=== PATIENT | male | born 1970 | race Caucasian/White ===

== ENCOUNTER → 2018-05-29 | Outpatient (CLI) | payer OTHER | END | disposition home or self-care (01) | LOC: C.LAB 07:20 | PROVIDERS: ATTEND Family Medicine | DX: Z00.00 Encounter for general adult medical examination without abnormal findings (principal) ==

== ENCOUNTER 2020-07-19 14:06 | Inpatient (IN) ==
[2020-07-19] MEDS ORDERED: MoRPHine SULFATE 10 MG/ML CARP/VIAL IV PRN (14:23)
[2020-07-19] MEDS ORDERED: ONDANSETRON INJ 2 MG/ML 2 ML VIAL IV STA (14:23)
[2020-07-19] MEDS ORDERED: PANTOprazole 40 MG in SYRINGE 0 ML IV ONE (14:23)
[2020-07-19] MEDS ORDERED: SODIUM CHLORIDE 0.9% 1000ML 1,000 ML IV SCH (14:30)
--- NOTE | 2020-07-19 14:33 | Emergency Department Note ---
History of Present Illness General Chief complaint: Abdominal Pain Stated complaint: ABDOMINAL PAIN Time Seen by Provider: 07/19/20 14:10 History of Present Illness Maximum Pain Intensity: 6 This is a 50-year-old male presenting to the emergency department for evaluation of epigastric abdominal pain for the past 3 hours. The patient states that he ate lunch around 11 AM, and shortly after began having a very tight bandlike pain across his upper abdomen. The pain is constant and nonradiating. It is rated a 6/10. He does have a history of esophageal reflux, and did take an acid reflux medicine and 2 Tums without any improvement of symptoms. He is without nausea or vomiting. He does not have any chest pain, chest tightness, shortness of breath, or lower abdominal pain. No history of abdominal surgery. There is a strong family history of esophageal cancer in members of family who have smoked. The patient is not a smoker. He has had EGD in the past several years ago, which was reportedly normal. The patient has not had fevers or chills. No known sick contacts. He is on Lipitor but no other medications or blood thinners. Home Medications Home Medications Medication Instructions Recorded Confirmed Type atorvastatin 10 mg PO QPM 07/19/20 07/19/20 History Allergies Allergy/AdvReac Type Severity Reaction Status Date / Time No Known Allergies Allergy Verified 07/19/20 17:26 Past Med/Surg History Medical History (Updated 07/20/20 @ 14:20 by Pj Gramajo PA-C) Esophageal reflux Hyperlipidemia Surgical History (Updated 07/20/20 @ 00:54 by Beto Gamboa) H/O wisdom tooth extraction History of ankle surgery left Family History Grandmother Diabetes Grandfather Myocardial infarction Grandfather Esophageal cancer Uncle Prostate cancer Mother Hypertension Father Hypertension Brother Crohn's disease Sister Stroke, Onset Age: 50 TIA Sister No problems noted. Son No problems noted. Daughter No problems noted. Daughter No problems noted. Denies family history of Ovarian cancer Breast cancer Colorectal cancer Social History (Updated 07/20/20 @ 00:55 by Beto Gamboa) Smoking Status: Former smoker Age Started Using Tobacco: 17; Age Quit Using Tobacco: 27; packs per day: 1; Second Hand Exposure: No; Do You Dip or Chew Tobacco: Yes (half a can a day); Tobacco Cessation Education Requested by Patient: No Hx Alcohol Use: No Hx Substance Use: No Preferred Language: Chadian Communication Ability: Effective Visual Impairment: No Limitations Hearing Ability: Normal Beliefs That Will Affect Care: None marital status: Current Living Situation: Family Current Living Situation Comment: [facility] current occupational status: employed current occupation: self employed -- construction (residential) How many Children do You have: 3 Other Information That Helps Us Care for You: No Feels Safe at Home: Yes Safety Concerns: Feels Safe At This Time Childhood Exposure to Second-Hand Smoke: No Dental Care, Regularly: Yes Physical Activity Frequency: 1-2 Times per Week Seatbelt Use: always Assistive Devices: None Review of Systems A total of 10 systems reviewed and were otherwise negative Physical Exam Vital Signs Vital Signs - 24 hr 07/19/20 14:41 07/19/20 14:59 07/19/20 15:00 Pulse Rate 84 90 Pulse Rate from SpO2 Sensor 88 Respiratory Rate 18 17 Blood Pressure 139/85 Blood Pressure Mean 93 Pulse Oximetry 95 95 Oxygen Delivery Method Room Air 07/19/20 15:01 07/19/20 15:39 07/19/20 16:00 Pulse Rate 84 74 74 Pulse Rate from SpO2 Sensor Respiratory Rate 17 18 17 Blood Pressure 138/91 Blood Pressure Mean 102 Pulse Oximetry Oxygen Delivery Method VITALS: Vitals are noted on the nurse's note and reviewed by myself. Vital signs stable. GENERAL: Well-developed, well-nourished, white male, who is in no acute distress and resting comfortably. Patient is cooperative with the examination. HEAD: Normocephalic atraumatic. NECK: Supple without nuchal rigidity. No lymphadenopathy. No thyromegaly. Cervical spine is nontender. HEART: Regular rate and rhythm without murmurs gallops or rubs. LUNGS: Clear to auscultation bilaterally without wheezes, rales or rhonchi. No retractions or accessory muscle use. ABDOMEN: Positive normal bowel sounds x 4. Soft with epigastric tenderness on palpation. There is both right upper and left upper quadrant tenderness. No lower abdominal tenderness. No CVA tenderness. MUSCULOSKELETAL: No muscle atrophy, erythema, or edema noted. Full range of motion in all extremities. No tenderness to palpation. NEURO: Patient was alert and oriented to person place and time. CN II through XII grossly intact. Course Administered Medications Atorvastatin Calcium (Atorvastatin 10 Mg Tab) 10 mg PO DAILY SADIE Stop: 08/19/20 08:59 Last Admin: 07/20/20 08:57 Dose: 10 mg Documented by: [id number] Chlorpromazine HCl (Chlorpromazine Hcl Inj 25 Mg/Ml 2 Ml Amp) 25 mg IM Q8H PRN PRN Reason: hiccups Stop: 08/19/20 10:29 Last Admin: 07/20/20 13:03 Dose: 25 mg Documented by: [id number] Diclofenac Sodium (Diclofenac Sod 1% Gel 100 Gm Tube) 2 gm EXT QID SADIE Stop: 08/18/20 20:59 Last Admin: 07/20/20 11:49 Dose: Not Given Documented by: [id number] Admin: 07/20/20 08:52 Dose: Not Given Documented by: [id number] Admin: 07/19/20 19:51 Dose: Not Given Documented by: [id number] Hydromorphone HCl (Hydromorphone Inj 0.5 Mg/0.5 Ml Syr) 0.5 mg IV Q4H PRN PRN Reason: Pain Stop: 08/02/20 18:40 Last Admin: 07/20/20 07:30 Dose: 0.5 mg Documented by: [id number] Admin: 07/20/20 00:51 Dose: 0.5 mg Documented by: [id number] Admin: 07/19/20 19:08 Dose: 0.5 mg Documented by: [id number] Potassium Chloride/Dextrose/Sod Cl (D5w And 1/2nss + 20meq Kcl) 20 meq in 1,000 mls @ 125 mls/hr IV .Q8H SADIE Stop: 08/18/20 18:59 Last Admin: 07/20/20 10:41 Dose: 125 mls/hr Documented by: [id number] Infusion: 07/20/20 10:29 Dose: 125 mls/hr Documented by: [id number] Admin: 07/20/20 02:29 Dose: 125 mls/hr Documented by: [id number] Infusion: 07/20/20 02:29 Dose: 125 mls/hr Documented by: [id number] Admin: 07/19/20 19:06 Dose: 125 mls/hr Documented by: [id number] Famotidine 20 mg/ Syringe 5 mls @ 2.5 mls/min IV BID SADIE Stop: 08/18/20 20:59 Last Admin: 07/20/20 08:57 Dose: 2.5 mls/min Documented by: [id number] Admin: 07/19/20 21:02 Dose: 2.5 mls/min Documented by: [id number] Ondansetron HCl (Ondansetron Inj 2 Mg/Ml 2 Ml Vial) 4 mg IV Q6H PRN PRN Reason: Nausea Stop: 08/18/20 18:40 Last Admin: 07/20/20 07:29 Dose: 4 mg Documented by: [id number] Admin: 07/19/20 23:52 Dose: 4 mg Documented by: [id number] Discontinued Medications Hydromorphone HCl (Hydromorphone Inj 0.5 Mg/0.5 Ml Syr) 0.5 mg IV NOW STA Stop: 07/19/20 21:42 Last Admin: 07/19/20 21:54 Dose: 0.5 mg Documented by: [id number] Hydromorphone HCl (Hydromorphone Inj 0.5 Mg/0.5 Ml Syr) 0.5 mg IV NOW STA Stop: 07/20/20 03:28 Last Admin: 07/20/20 03:47 Dose: 0.5 mg Documented by: [id number] Sodium Chloride (Nss 1000ml) 1,000 mls @ 999 mls/hr IV .Q1H1M SADIE Stop: 07/19/20 15:30 Last Infusion: 07/19/20 18:01 Dose: 0 mls/hr Documented by: [id number] Admin: 07/19/20 14:57 Dose: 999 mls/hr Documented by: [id number] Pantoprazole Sodium 40 mg/ (Syringe) 10 mls @ 5 mls/min IV NOW ONE Stop: 07/19/20 14:24 Last Admin: 07/19/20 16:22 Dose: Not Given Documented by: [id number] Ioversol (Ioversol 100ml) 94 ml IV ONCE ONE Stop: 07/20/20 13:26 Last Admin: 07/20/20 13:25 Dose: 94 ml Documented by: [id number] Morphine Sulfate (Morphine Sulfate 10 Mg/Ml Carp/Vial) 6 mg IV Q1H PRN PRN Reason: Pain Stop: 08/02/20 14:22 Last Admin: 07/19/20 14:57 Dose: 6 mg Documented by: [id number] Morphine Sulfate (Morphine Sulfate 2 Mg/Ml Carp) Confirm Administered Dose 2 mg .ROUTE .STK-MED ONE Stop: 07/19/20 16:24 Last Admin: 07/19/20 16:43 Dose: 2 mg Documented by: [id number] Morphine Sulfate (Morphine Sulfate 4 Mg/Ml 1 Ml Carp\Vial) Confirm Administered Dose 4 mg .ROUTE .STK-MED ONE Stop: 07/19/20 16:24 Last Admin: 07/19/20 16:43 Dose: 4 mg Documented by: [id number] Ondansetron HCl (Ondansetron Inj 2 Mg/Ml 2 Ml Vial) 4 mg IV NOW STA Stop: 07/19/20 14:24 Last Admin: 07/19/20 14:57 Dose: 4 mg Documented by: [id number] Medical Decision Making Differential Diagnosis Differential diagnosis: Etiologies such as biliary colic, cholecystitis, hepatitis, pancreatitis, cardiac disease, pancreatitis, gastritis, peptic ulcer disease, appendicitis, cystitis, diverticulitis, mesenteric ischemia, inflammatory bowel disease, ileus, bowel obstruction, testicular/adnexal torsion, aortic pathology, shingles, as well as others were considered Laboratory Data Result diagrams: 07/19/20 14:42 07/20/20 05:49 Lab Results 07/19/20 07/19/20 07/19/20 Range/Units 14:42 14:42 14:44 WBC 8.71 (4.8-10.8) K/uL RBC 4.63 L (4.7-6.1) M/uL Hgb 15.9 (14.0-18.0) g/dL Hct 44.7 (42-52) % MCV 96.5 (80-100) fL MCH 34.3 H (25-34) pg MCHC 35.6 (32-36) g/dL RDW Std Deviation 44.6 (36.4-46.3) fL RDW Coeff of Devin 12.7 (11.5-14.5) % Plt Count 243 (130-400) K/uL MPV 10.6 H (7.4-10.4) fL Immature Gran % (Auto) 0.1 % Neut % (Auto) 82.3 % Lymph % (Auto) 10.1 % Twiggs % (Auto) 7.2 % Eos % (Auto) 0.2 % Baso % (Auto) 0.1 % Neut # (Auto) 7.16 H (1.4-6.5) K/uL Lymph # (Auto) 0.88 L (1.2-3.4) K/uL Twiggs # (Auto) 0.63 H (0.11-0.59) K/uL Eos # (Auto) 0.02 (0-0.5) K/uL Baso # (Auto) 0.01 (0-0.2) K/uL Immature Gran # (Auto) 0.01 (0.00-0.02) K/uL PT 11.0 (9.0-12.0) Seconds INR 1.0 (0.9-1.1) APTT 27.2 (21.0-31.0) Seconds PTT Ratio 1.0 Sodium 139 (136-145) mmol/L Potassium 3.9 (3.5-5.1) mmol/L Chloride 107 (98-107) mmol/L Carbon Dioxide 27 (21-32) mmol/L Anion Gap 5.0 (3-11) BUN 13 (7-18) mg/dl Creatinine 1.14 (0.6-1.4) mg/dl Est Cr Clr Drug Dosing 87.4 ml/min Est GFR ( Amer) 87.7 Est GFR (Non-Af Amer) 75.6 BUN/Creatinine Ratio 11.7 (10-20) Glucose 111 H (70-99) mg/dl Calcium 9.1 (8.5-10.1) mg/dl Magnesium 2.2 (1.8-2.4) mg/dl Total Bilirubin 0.4 (0.2-1) mg/dl AST 28 (15-37) U/L ALT 43 (12-78) U/L Alkaline Phosphatase 48 (45-117) U/L Troponin I < 0.015 (0-0.045) ng/ml Total Protein 7.9 (6.4-8.2) gm/dl Albumin 3.9 (3.4-5.0) gm/dl Globulin 4.0 (2.5-4.0) gm/dl Albumin/Globulin Ratio 1.0 (0.9-2) Amylase 97 (25-115) U/L Lipase 158 (73-393) U/L TSH 1.330 (0.300-4.500) uIu/ml Urine Color Urine Appearance (Clear) Urine pH (4.5-7.5) Ur Specific [place] (1.000-1.030) Urine Protein (Negative) Urine Glucose (UA) (Negative) Urine Ketones (Negative) Urine Blood (Negative) Urine Nitrite (Negative) Urine Bilirubin (Negative) Urine Urobilinogen (Negative) Ur Leukocyte Esterase (Negative) 07/19/20 Range/Units 15:13 WBC (4.8-10.8) K/uL RBC (4.7-6.1) M/uL Hgb (14.0-18.0) g/dL Hct (42-52) % MCV (80-100) fL MCH (25-34) pg MCHC (32-36) g/dL RDW Std Deviation (36.4-46.3) fL RDW Coeff of Devin (11.5-14.5) % Plt Count (130-400) K/uL MPV (7.4-10.4) fL Immature Gran % (Auto) % Neut % (Auto) % Lymph % (Auto) % Twiggs % (Auto) % Eos % (Auto) % Baso % (Auto) % Neut # (Auto) (1.4-6.5) K/uL Lymph # (Auto) (1.2-3.4) K/uL Tw[place]gs # (Auto) (0.11-0.59) K/uL Eos # (Auto) (0-0.5) K/uL Baso # (Auto) (0-0.2) K/uL Immature Gran # (Auto) (0.00-0.02) K/uL PT (9.0-12.0) Seconds INR (0.9-1.1) APTT (21.0-31.0) Seconds PTT Ratio Sodium (136-145) mmol/L Potassium (3.5-5.1) mmol/L Chloride (98-107) mmol/L Carbon Dioxide (21-32) mmol/L Anion Gap (3-11) BUN (7-18) mg/dl Creatinine (0.6-1.4) mg/dl Est Cr Clr Drug Dosing ml/min Est GFR ( Amer) Est GFR (Non-Af Amer) BUN/Creatinine Ratio (10-20) Glucose (70-99) mg/dl Calcium (8.5-10.1) mg/dl Magnesium (1.8-2.4) mg/dl Total Bilirubin (0.2-1) mg/dl AST (15-37) U/L ALT (12-78) U/L Alkaline Phosphatase (45-117) U/L Troponin I (0-0.045) ng/ml Total Protein (6.4-8.2) gm/dl Albumin (3.4-5.0) gm/dl Globulin (2.5-4.0) gm/dl Albumin/Globulin Ratio (0.9-2) Amylase (25-115) U/L Lipase (73-393) U/L TSH (0.300-4.500) uIu/ml Urine Color Yellow Urine Appearance Clear (Clear) Urine pH 7.0 (4.5-7.5) Ur Specific [place] 1.022 (1.000-1.030) Urine Protein Negative (Negative) Urine Glucose (UA) Negative (Negative) Urine Ketones Negative (Negative) Urine Blood Negative (Negative) Urine Nitrite Negative (Negative) Urine Bilirubin Negative (Negative) Urine Urobilinogen Negative (Negative) Ur Leukocyte Esterase Negative (Negative) Imaging Data Radiologist's Impression: CT OF THE ABDOMEN AND PELVIS WITHOUT CONTRAST CLINICAL HISTORY: Epigastric abd pain. COMPARISON STUDY: No previous studies for comparison. TECHNIQUE: Axial images of the abdomen and pelvis were obtained without IV contrast. Images were reviewed in the axial, sagittal, and coronal planes. Automated exposure control was utilized for the study. A dose lowering technique was utilized adhering to the principles of ALARA. FINDINGS: Lung bases are unremarkable. No pneumatosis, free air or portal venous gas is present. Unenhanced images of the liver, spleen, adrenal glands and pancreas are unremarkable. There are bilateral parapelvic cysts. There is no hydronephrosis. There are no urinary calculi. Colonic diverticulosis is noted without evidence for acute diverticulitis. There are multiple mildly dilated fluid-filled small bowel loops within the lower abdomen. Discrete transition points are noted for several bowel loops within the right lower quadrant shown on axial image 300 of 491. No bowel wall thickening is noted however there is a small amount of associated ascites as well as mesenteric infiltration. No suspicious osseous lesions are noted. There is no lymphadenopathy. IMPRESSION: Findings consistent with a small bowel obstruction. Transition points in close proximity to one another for several small bowel loops within the right lower quadrant. Associated small amount of ascites and mesenteric infiltration. A developing closed loop obstruction cannot be excluded. Surgical consultation is recommended. Findings discussed with Pj Gramajo at time of dictation. ACT 112: Negative or not required by law. ECG Data Attestation: I personally reviewed and interpreted this ECG as follows: Indication: abdominal pain Additional Comments: Normal sinus rhythm @[address] elevation Possible old Septal infarct When compared with ECG of 28-SEP-2018 12:01, Possible old Septal infarct is now Present MDM Narrative Physical exam and history were performed. Nursing notes, EMR, and Medication List were personally reviewed. Patient appears to have epigastric abdominal pain after eating lunch today. He does have some reproducible tenderness in the epigastrium. Symptoms do not appear to be in the lower belly or chest. IV access was established and labs were obtained. Patient was hydrated with normal saline and given IV morphine and IV Zofran for comfort. He was sent to CT scan. Ultrasound was ordered. An order was placed for continuous cardiac monitoring. The monitor shows a rate of 84 with normal sinus rhythm. The patient's blood work is as above and was reviewed. He does not have a significantly elevated white blood cell count, gross anemia, bandemia, or significant electrolyte imbalance. Amylase, lipase, and transaminases are not diagnostic. Urine is without evidence of infection or blood. I did receive a phone call from radiology immediately after the patient completed his CT scan. The patient CT scan appears to show a minimum of a small bowel obstruction, however there is concern for possible closed-loop bowel o bstruction. This would correlate with his symptoms, although the patient has not had a history of abdominal surgery in the past. Ultrasound was canceled because of this finding as it does seem to explain his symptoms. The case was discussed with the on-call surgical PA, who did evaluate the patie nt here in the ER. Recommendation was for hospital admission through the hospitalist team, and I did speak with the hospitalist regarding the patient. NG tube was ordered, and the patient was placed n.p.o. Please see the hospitalist dictation for further patient course, plan, and disposition. The chart was completed utilizing [employer] Voice Recognition Software. Grammatical errors, random word insertions, pronoun errors, and incomplete sentences are an occasional consequence of this system due to software limitations, ambient noise, and hardware issues. Any formal questions or lynn rns about the content, text, or information contained within the body of this dictation should be directly addressed to the provider for clarification. . Impression & Plan SBO (small bowel obstruction), Abdominal pain Discharge Plan Visit Data Chief Complaint: Abdominal Pain Stated Complaint: ABDOMINAL PAIN ED Provider: Jerry Reed ED Midlevel Provider: Pj Gramajo Discharge Problem: SBO (small bowel obstruction), Abdominal pain Patient Disposition: Admitted As Inpatient Discharge Instructions Interventions: ED Discharge Assessment Last Done: 07/19/20 18:27 Discharge Problem: Abdominal pain Qualifiers: Abdominal location: epigastric Qualified Code(s): R10.13 - Epigastric pain
[2020-07-19 15:20] LABS: Basophils # (auto) 0.01 K/uL (0-0.2); Basophils % (auto) 0.1 %; Eosinophils # (auto) 0.02 K/uL (0-0.5); Eosinophils % (auto) 0.2 %; Hematocrit (blood only) 44.7 % (42-52); Hemoglobin 15.9 g/dL (14.0-18.0); Immature Granulocytes # (auto) 0.01 K/uL (0.00-0.02); Immature Granulocytes % (auto) 0.1 %; Lymphocytes # (auto) 0.88 K/uL (1.2-3.4); Lymphocytes % (auto) 10.1 %; Mean Corpuscular Hemoglobin 34.3 pg (25-34); Mean Corpuscular Hgb Conc 35.6 g/dL (32-36); Mean Corpuscular Volume 96.5 fL (80-100); Mean Platelet Volume 10.6 fL (7.4-10.4); Monocytes # (auto) 0.63 K/uL (0.11-0.59); Monocytes % (auto) 7.2 %; Neutrophils # (auto) 7.16 K/uL (1.4-6.5); Neutrophils % (auto) 82.3 %; Platelet Count 243 K/uL (130-400); RDW Coefficient of Variation 12.7 % (11.5-14.5); RDW Standard Deviation 44.6 fL (36.4-46.3); Red Blood Count 4.63 M/uL (4.7-6.1); White Blood Count 8.71 K/uL (4.8-10.8)
[2020-07-19 15:25] LABS: Alanine Aminotransferase 43 U/L (12-78); Albumin Level 3.9 gm/dl (3.4-5.0); Amylase 97 U/L (25-115); Aspartate Aminotransferase 28 U/L (15-37); BUN Creatinine Ratio 11.7 (10-20); Blood Urea Nitrogen 13 mg/dl (7-18); Calcium 9.1 mg/dl (8.5-10.1); Carbon Dioxide 27 mmol/L (21-32); Chloride 107 mmol/L (98-107); Creatinine Clr Calc Pharmacy 87.4 ml/min; Est GFR (African American) 87.7; Est GFR (Non-African American) 75.6; Glucose 111 mg/dl (70-99); Lipase 158 U/L (73-393); Magnesium 2.2 mg/dl (1.8-2.4); Potassium 3.9 mmol/L (3.5-5.1); Sodium 139 mmol/L (136-145)
[2020-07-19 15:34] LABS: Partial Thromboplastin Time 27.2 Seconds (21.0-31.0)
[2020-07-19 15:36] LABS: Alkaline Phosphatase 48 U/L (45-117); Bilirubin,Total 0.4 mg/dl (0.2-1); Total Protein 7.9 gm/dl (6.4-8.2); Troponin I < 0.015 ng/ml (0-0.045)
--- NOTE | 2020-07-19 15:54 | CT Scan Report ---
CT OF THE ABDOMEN AND PELVIS WITHOUT CONTRAST CLINICAL HISTORY: Epigastric abd pain. COMPARISON STUDY: No previous studies for comparison. TECHNIQUE: Axial images of the abdomen and pelvis were obtained without IV contrast. Images were revi ewed in the axial, sagittal, and coronal planes. Automated exposure control was utilized for the leoncio dy. A dose lowering technique was utilized adhering to the principles of ALARA. FINDINGS: Lung bases are unremarkable. No pneumatosis, free air or portal venous gas is present. Unen hanced images of the liver, spleen, adrenal glands and pancreas are unremarkable. There are bilateral parapelvic cysts. There is no hydronephrosis. There are no urinary calculi. Colonic diverticulosis i s noted without evidence for acute diverticulitis. There are multiple mildly dilated fluid-filled sma ll bowel loops within the lower abdomen. Discrete transition points are noted for several bowel loops within the right lower quadrant shown on axial image 300 of 491. No bowel wall thickening is noted h owever there is a small amount of associated ascites as well as mesenteric infiltration. No suspiciou s osseous lesions are noted. There is no lymphadenopathy. IMPRESSION: Findings consistent with a small bowel obstruction. Transition points in close proximity to one another for several small bowel loops within the right lower quadrant. Associated small amoun t of ascites and mesenteric infiltration. A developing closed loop obstruction cannot be excluded. Lynch rgical consultation is recommended. Findings discussed with Pj Gramajo at time of dictation. ACT 112: Negative or not required by law. Electronically signed by: Robert Figueredo M.D. 07/19/2020 3:52 PM
[2020-07-19 16:09] LABS: Appearance Urine Clear (Clear); Bilirubin Urine Negative (Negative); Blood Urine Negative (Negative); Color Urine Yellow; Glucose Urine UA Negative (Negative); Ketones Urine Negative (Negative); Leukocyte Esterase Urine Negative (Negative); Nitrite Urine Negative (Negative); Protein Urine Negative (Negative); Specific Gravity Urine 1.022 (1.000-1.030); Urobilinogen Urine Negative (Negative)
[2020-07-19] MEDS ORDERED: MoRPHine SULFATE 4 MG/ML 1 ML CARP\\VIAL ONE (16:23)
[2020-07-19] MEDS ORDERED: MoRPHine SULFATE 2 MG/ML CARP ONE (16:23)
--- NOTE | 2020-07-19 16:38 | History & Physical Report ---
Date of Service July 19, 2020 Assessment & Plan (1) SBO (small bowel obstruction): CT abd/pelvis suggests SBO - potentially even a closed-loop obstruction - but patient has no prior h/o intra-abdominal surgery, trauma, etc. Appreciate gen surg consultation. Deferring on NG tube for now due to lack of nausea/emesis and fairly soft abdominal exam. Plan for this evening - NPO status, IV fluids, IV pain meds, IV nausea meds, and repeat abd x-rays in am. If not an SBO - severe viral gastroenteritis? other? (2) Abdominal pain: As above. LFTs, lipase, and ua all wnl. No symptoms to suggest cardiac cause of abdominal symptoms. Pain meds prn. See "SBO" above. (3) Esophageal reflux: IV pepcid BID. (4) Hyperlipidemia: lipitor daily (5) DVT prophylaxis: low risk ambulate defer on chemical means for now updated at bedside again appreciate gen surg input History of Present Illness Chief Complaint: abdominal pain Primary Care Provider: Megan Cox MD 50yo male with h/o hyperlipidemia presents with acute onset of upper abdominal pain and bloating beginning about 1115 this am after eating at a local deli. Pain started about 5-10 minutes after he finished eating his meal. No nausea or vomiting. Pain radiated to the back. No diarrhea. Has not passed flatus since coming to the ER. No fevers but did have mild chills about 1-2 hours into the pain episode. Pain is described as sharp and continuous. [place] fine this am upon awakening with no recent illnesses. In the ER a CT of the abd/pelvis appeared to show an SBO. General surgery was contacted for consultation and we were consulted for admission. Allergies Allergy/AdvReac Type Severity Reaction Status Date / Time No Known Allergies Allergy Verified 07/19/20 17:26 Home Medications Home Medications Medication Instructions Recorded Confirmed Type atorvastatin 10 mg PO QPM 07/19/20 07/19/20 History Past Med/Surg History Medical History (Updated 07/20/20 @ 00:58 by Beto Gamboa) Esophageal reflux Hyperlipidemia Surgical History (Updated 07/20/20 @ 00:54 by Bteo Gamboa) H/O wisdom tooth extraction History of ankle surgery left Family History Grandmother Diabetes Grandfather Myocardial infarction Grandfather Esophageal cancer Uncle Prostate cancer Mother Hypertension Father Hypertension Brother Crohn's disease Sister Stroke, Onset Age: 50 TIA Sister No problems noted. Son No problems noted. Daughter No problems noted. Daughter No problems noted. Denies family history of Ovarian cancer Breast cancer Colorectal cancer Social History (Updated 07/20/20 @ 00:55 by Beto Gamboa) Smoking Status: Former smoker Age Started Using Tobacco: 17; Age Quit Using Tobacco: 27; packs per day: 1; Second Hand Exposure: No; Do You Dip or Chew Tobacco: Yes (half a can a day); Tobacco Cessation Education Requested by Patient: No Hx Alcohol Use: No Hx Substance Use: No Preferred Language: Ugandan Communication Ability: Effective Visual Impairment: No Limitations Hearing Ability: Normal Beliefs That Will Affect Care: None marital status: Current Living Situation: Family Current Living Situation Comment: [place] current occupational status: employed current occupation: self employed -- construction (residential) How many Children do You have: 3 Other Information That Helps Us Care for You: No Feels Safe at Home: Yes Safety Concerns: Feels Safe At This Time Childhood Exposure to Second-Hand Smoke: No Dental Care, Regularly: Yes Physical Activity Frequency: 1-2 Times per Week Seatbelt Use: always Assistive Devices: None Review of Systems Constitutional: no fever, no chills, no body aches, no fatigue and no weight loss Eyes: no worsening vision Ear, Nose, Mouth, Throat: no nasal congestion and no sore throat no loss of taste or smell Respiratory: no cough and no dyspnea Cardiovascular: no chest pain Gastrointestinal: + abdominal pain; no nausea, no vomiting and no diarrhea/loose stools Genitourinary: no dysuria Musculoskeletal: no myalgia Integumentary: no rash Neurologic: no localized weakness and no loss of sensation Psychiatric: no depression Endocrine: denies diabetes Hematologic / Lymphatic: no easy bleeding and no easy bruising Physical Exam Constitutional: well developed and well nourished; no acute distress and no altered mental status Eyes: PERRL ENMT: external ear and nose normal, oropharynx normal Neck: trachea midline, no thyromegaly Respiratory: normal respiratory effort, lungs clear to auscultation Cardiovascular: RRR, no murmur, no edema Heart Sounds: normal S1 and normal S2 Vessels: posterior tibial pulses present and dorsalis pedis pulses present; no JVD Gastrointestinal (Abdomen): Inspection/Auscultation: normal bowel sounds; abdomen not distended Percussion/Palpation: + abdomen tender (mild - epigastric region ) and abdomen soft; no hepatosplenomegaly Musculoskeletal: no cyanosis or clubbing, extremities motor strength 5/5 Skin: no rashes, warm and dry Neurologic: deep tendon reflexes 2+ bilaterally and moves all extremities Psychiatric: A+Ox3, euthymic affect Lymphatic: no cervical lymphadenopathy Results & Data Results & Data ([facility]) Vital Signs (Past 12 Hours) Vital Signs Temp Pulse Resp BP Pulse Ox 07/19/20 16:00 74 17 138/91 07/19/20 15:39 74 18 07/19/20 15:01 84 17 07/19/20 15:00 95 07/19/20 14:59 90 17 139/85 95 07/19/20 14:41 84 18 07/19/20 14:09 37.5 C 98 H 18 158/91 H 96 Laboratory Results Laboratory Results - last 24 hr 07/19/20 07/19/20 07/19/20 14:42 14:42 14:44 WBC 8.71 RBC 4.63 L Hgb 15.9 Hct 44.7 MCV 96.5 MCH 34.3 H MCHC 35.6 RDW Std Deviation 44.6 RDW Coeff of Devin 12.7 Plt Count 243 MPV 10.6 H Immature Gran % (Auto) 0.1 Neut % (Auto) 82.3 Lymph % (Auto) 10.1 [place] % (Auto) 7.2 Eos % (Auto) 0.2 Baso % (Auto) 0.1 Neut # (Auto) 7.16 H Lymph # (Auto) 0.[address] [place] # (Auto) 0.63 H Eos # (Auto) 0.02 Baso # (Auto) 0.01 Immature Gran # (Auto) 0.01 PT 11.0 INR 1.0 APTT 27.2 PTT Ratio 1.0 Sodium 139 Potassium 3.9 Chloride 107 Carbon Dioxide 27 Anion Gap 5.0 BUN 13 Creatinine 1.14 Est Cr Clr Drug Dosing 87.4 Est GFR ( Amer) 87.7 Est GFR (Non-Af Amer) 75.6 BUN/Creatinine Ratio 11.7 Glucose 111 H Calcium 9.1 Magnesium 2.2 Total Bilirubin 0.4 AST 28 ALT 43 Alkaline Phosphatase 48 Troponin I < 0.015 Total Protein 7.9 Albumin 3.9 Globulin 4.0 Albumin/Globulin Ratio 1.0 Amylase 97 Lipase 158 TSH 1.330 Urine Color Urine Appearance Urine pH Ur Specific [place] Urine Protein Urine Glucose (UA) Urine Ketones Urine Blood Urine Nitrite Urine Bilirubin Urine Urobilinogen Ur Leukocyte Esterase 07/19/20 15:13 WBC RBC Hgb Hct MCV MCH MCHC RDW Std Deviation RDW Coeff of Devin Plt Count MPV Immature Gran % (Auto) Neut % (Auto) Lymph % (Auto) [place] % (Auto) Eos % (Auto) Baso % (Auto) Neut # (Auto) Lymph # (Auto) [place] # (Auto) Eos # (Auto) Baso # (Auto) Immature Gran # (Auto) PT INR APTT PTT Ratio Sodium Potassium Chloride Carbon Dioxide Anion Gap BUN Creatinine Est Cr Clr Drug Dosing Est GFR ( Amer) Est GFR (Non-Af Amer) BUN/Creatinine Ratio Glucose Calcium Magnesium Total Bilirubin AST ALT Alkaline Phosphatase Troponin I Total Protein Albumin Globulin Albumin/Globulin Ratio Amylase Lipase TSH Urine Color Yellow Urine Appearance Clear Urine pH 7.0 Ur Specific [place] 1.022 Urine Protein Negative Urine Glucose (UA) Negative Urine Ketones Negative Urine Blood Negative Urine Nitrite Negative Urine Bilirubin Negative Urine Urobilinogen Negative Ur Leukocyte Esterase Negative Diagnostic Findings CT abd/pelvis: IMPRESSION: Findings consistent with a small bowel obstruction. Transition points in close proximity to one another for several small bowel loops within the right lower quadrant. Associated small amount of ascites and mesenteric infiltration. A developing closed loop obstruction cannot be excluded. Surgical consultation is recommended. EKG - my reading: NSR, no ST changes. Q waves v1/v2. Code Status & VTE Plan Code Status full PG Care Time/CCT Total # of Minutes Spent Total Time Spent with Patient: Total time spent is greater than 50% in coordination of care (as documented) at patient's floor/unit and/or counseling patient: Coding Level of Care Code 68866 Initial Inpt Care Lvl 2 Diagnoses SBO (small bowel obstruction) K56.609 Abdominal pain R10.9 Esophageal reflux K21.9 Hyperlipidemia E78.5 DVT prophylaxis Z29.9
--- NOTE | 2020-07-19 16:53 | Surgery Consultation ---
Date of Consultation July 19, 2020 Assessment & Plan (1) Abdominal pain: No acute abdominal findings. Doubt he has closed loop obstruction. Would keep NPO for tonight, NG if pain or nausea persists or he begins vomiting. KUB in AM, consider additional contrast study depending on repeat eval in the morning. Supervising Physician Co-Signing Physician Notes Patient seen and examined, labs and imaging reviewed, agree with above. 50-year-old male with several hours of abdominal pain after eating lunch presented to the emergency department. He has passed flatus today. No prior abdominal surgeries, infections, or trauma. On exam he is afebrile with stable vitals. Labs are unremarkable. CT without oral or IV contrast reveals some dilated loops of bowel with areas of decompression in the right lower quadrant and some infiltration of the mesentery. Per the radiologist report a closed- loop small bowel obstruction cannot be excluded. At this point this does not appear to be consistent based on history, physical exam, or imaging findings to be consistent with a true closed-loop bowel obstruction. Recommend admission to medicine, n.p.o., IV fluids. No NG tube in this patient begins to vomit. Repeat KUB and labs in the morning. Consider CT with oral and IV contrast if symptoms persist. Surgery will continue to follow. History of Present Illness History of Present Illness 50 y/o male developed epigastric pain a short time after eating a hoagie for lunch. No N/V, felt fine prior to eating. No previous surgery, recent abdominal complaints, injury or trauma. Bowels have been normal, had BM last night. Etoile a little better after medicated with morphine and zofran, but those effects are starting to wear off. Had EGD years ago for reflux symptoms. Allergies Allergy/AdvReac Type Severity Reaction Status Date / Time No Known Drug Allergies Allergy Verified 08/25/19 14:22 Home Medications Home Medications Medication Instructions Recorded Confirmed Type escitalopram oxalate 5 mg tablet 5 mg PO DAILY 05/14/19 08/25/19 History diclofenac sodium 1 % topical gel 2 gm TOP QID #100 gm 08/25/19 08/25/19 Rx atorvastatin 10 mg tablet 10 mg PO DAILY #30 tab 07/06/20 Rx Patient History Medical History Esophageal reflux Hyperlipidemia Surgical History No history of previous surgery Family History Grandmother Diabetes Grandfather Myocardial infarction Grandfather Esophageal cancer Uncle Prostate cancer Mother Hypertension Father Hypertension Brother Crohn's disease Sister Stroke, Onset Age: 50 TIA Sister No problems noted. Son No problems noted. Daughter No problems noted. Daughter No problems noted. Denies family history of Ovarian cancer Breast cancer Colorectal cancer Social History (Updated 08/25/19 @ 14:26 by HOMER Dow) Smoking Status: Former smoker Age Started Using Tobacco: 17; Age Quit Using Tobacco: 27; packs per day: 1; Second Hand Exposure: No; Hx Alcohol Use: Yes Alcohol type: beer Hx Substance Use: No Preferred Language: Mosotho Communication Ability: Effective Visual Impairment: No Limitations Hearing Ability: Normal marital status: Current Living Situation: Family current occupational status: employed current occupation: self emolyed construction Feels Safe at Home: Yes Childhood Exposure to Second-Hand Smoke: No Dental Care, Regularly: Yes Physical Activity Frequency: 1-2 Times per Week Seatbelt Use: always Review of Systems Constitutional: no fever and no chills Gastrointestinal: + abdominal pain and + bloating; no nausea, no vomiting, no excessive flatulence, no change in bowel habits and no constipation Physical Exam Constitutional: WD/WN, vitals as above Respiratory: normal respiratory effort Cardiovascular: Rate/Rhythm: + tachycardic (mild) Gastrointestinal (Abdomen): Inspection/Auscultation: + abdomen distended (minimal) Percussion/Palpation: + abdomen tender (minimal generalized) and abdomen soft; no guarding and abdomen not rigid Results & Data ([facility]) Vital Signs (Past 12 Hours) Vital Signs Temp Pulse Resp BP Pulse Ox 07/19/20 16:00 74 17 138/91 07/19/20 15:39 74 18 07/19/20 15:01 84 17 07/19/20 15:00 95 07/19/20 14:59 90 17 139/85 95 07/19/20 14:41 84 18 07/19/20 14:09 37.5 C 98 H 18 158/91 H 96 PG Care Time/CCT Total # of Minutes Spent Total Time Spent with Patient: Total time spent is greater than 50% in coordination of care (as documented) at patient's floor/unit and/or counseling patient: Coding Level of Care Code 41846 Inpt Consult Level 3 Diagnoses Abdominal pain R10.9
[2020-07-19] MEDS ORDERED: ZOLPIDEM TARTRATE 5 MG TAB PO PRN (18:41)
[2020-07-19] MEDS: D5W AND 1/2NSS + 20MEQ KCL 20 MEQ/1,000 ML BAG IV SCH (19:06)
[2020-07-19] MEDS: HYDROmorphone INJ 0.5 MG/0.5 ML SYR IV PRN (19:08)
[2020-07-19] MEDS: DICLOFENAC SOD 1% GEL 100 GM TUBE EXT SCH (19:51)
[2020-07-19] MEDS: FAMOTIDINE 20 MG in SYRINGE 3 ML IV SCH (21:02)
[2020-07-19] MEDS ORDERED: HYDROmorphone INJ 0.5 MG/0.5 ML SYR IV STA (21:41)
[2020-07-19] MEDS: ONDANSETRON INJ 2 MG/ML 2 ML VIAL IV PRN (23:52)
[2020-07-20] MEDS: HYDROmorphone INJ 0.5 MG/0.5 ML SYR IV PRN ×2 (00:51→07:30)
[2020-07-20] MEDS: D5W AND 1/2NSS + 20MEQ KCL 20 MEQ/1,000 ML BAG IV SCH ×3 (02:29→21:41)
[2020-07-20] MEDS ORDERED: HYDROmorphone INJ 0.5 MG/0.5 ML SYR IV STA (03:27)
[2020-07-20 07:16] LABS: BUN Creatinine Ratio 10.1 (10-20); Calcium 8.4 mg/dl (8.5-10.1); Creatinine Clr Calc Pharmacy 97.4 ml/min; Est GFR (African American) 101.5; Est GFR (Non-African American) 87.5; Magnesium 2.1 mg/dl (1.8-2.4); Potassium 4.3 mmol/L (3.5-5.1)
[2020-07-20] MEDS: ONDANSETRON INJ 2 MG/ML 2 ML VIAL IV PRN (07:29)
--- NOTE | 2020-07-20 07:29 | Hospitalist Progress Note ---
Date of Service July 20, 2020 Assessment & Plan (1) SBO (small bowel obstruction): CT abd/pelvis suggests SBO -patient on previous abdominal surgery or trauma Appreciate gen surg consultation. Ordered CT scan of the abdomen pelvis with intravenous and oral contrast on 07/20/2020 Patient continues deferring on NG tube for now did have an episode of vomitus on 07/20 Keeping his NPO status, IV fluids, IV pain meds, IV nausea meds, (2) Abdominal pain: As above. LFTs, lipase, and ua all wnl. No symptoms to suggest cardiac cause of abdominal symptoms. (3) Esophageal reflux: IV pepcid BID. Patient states many many years ago approximately 20 patient had a similar episode which she had some testing including an EGD and x- rays which was done to be reflux disease and treated with acid suppressing medications with success however was never told about obstruction at that time (4) Hyperlipidemia: lipitor daily (5) DVT prophylaxis: low risk ambulate defer on chemical means for now Patient has hiccups will try Thorazine Admission and Anticipated Discharge Date Admission Date: July 19, 2020 Subjective Patient admitted with abdominal pain nausea and vomiting with concern for bowel obstruction without having previous history of abdominal surgery. Patient is somewhat better this morning but did vomit. Patient is having a contrast CT scan this afternoon is followed by surgical team. Review of Systems Review of Systems: Mild distress and fatigue no headache, blurry or double vision no speech or swallowing issues no chest pain, pressure or palpitations no shortness of breath, cough or wheezes Persistent epigastric upper quadrant abdominal pain nausea with vomiting no bowel movements present no dysuria, hematuria or frequency no focal joint pain or swelling no back pain, CVA tenderness or radicular pain no bruising, bleeding or rashes no focal signs of weakness or numbness or altered sensation no complaints of anxiety or depression. Physical Exam Physical Exam: The patient appeared well nourished and normally developed. Vital signs as documented. Head exam is normocephalic atraumatic no scleral icterus Neck is without JVD, thyromegaly, or carotid bruits. Lungs are clear to auscultation, no focal loss of breath sounds Cardiac exam, Rhythm is regular.. No murmurs, rubs or gallops. Abdominal exam reveals tinkling high-pitched bowel sounds Persistent epigastric upper quadrant abdominal pain no bowel movements present Extremities are nonedematous and both pedal pulses are present Neurologic exam is alert and oriented, no focal loss of strength or sensation Skin is without bruises or rashes Psychologically is without concerns for anxiety or depression. Results & Data Results & Data ([facility]) Vital Signs (Past 12 Hours) Vital Signs Temp Pulse Resp BP Pulse Ox 07/19/20 23:34 98.6 F 61 14 125/73 94 PG Care Time/CCT Total # of Minutes Spent Total Time Spent with Patient: Total time spent is greater than 50% in coordination of care (as documented) at patient's floor/unit and/or counseling patient: Coding Level of Care Code 17129 Subseq Hosp Care Lvl 2 Diagnoses SBO (small bowel obstruction) K56.609 Abdominal pain R10.9 Esophageal reflux K21.9 Hyperlipidemia E78.5 DVT prophylaxis Z29.9
[2020-07-20] MEDS: DICLOFENAC SOD 1% GEL 100 GM TUBE EXT SCH ×4 (08:52→20:58)
[2020-07-20] MEDS: FAMOTIDINE 20 MG in SYRINGE 3 ML IV SCH ×2 (08:57→21:42)
[2020-07-20] MEDS: ATORVASTATIN 10 MG TAB PO SCH (08:57)
--- NOTE | 2020-07-20 08:57 | XRay Report ---
XR abdomen 2V w PA chest HISTORY: 50 years-old Male sbo, interval change follow-up study in a patient with small bowel obstru ction COMPARISON: CT abdomen and pelvis 07/19/2020 TECHNIQUE: PA view of the chest with erect and supine views of the abdomen FINDINGS: Cardiomediastinal and hilar silhouettes are within normal limits. No pneumothorax, pleural effusion, airspace consolidation or overt pulmonary edema. Bones of the chest appear grossly intact. Mildly dilated loops of small bowel in the central abdomen with air-fluid levels measure up to 4.3 cm transversely.. Air is also noted within the large bowel with mild to moderate fecal retention of the hepatic flexure. No pneumatosis or pneumoperitoneum identified. No urolith. IMPRESSION: 1. A few mildly dilated loops of small bowel within the central abdomen with associated air-fluid lev els. Correlating this finding with comparison CT, findings are suspicious for a partial obstruction. Continued follow-up recommended.. 2. No pneumatosis or pneumoperitoneum. ACT 112: Negative or not required by law. The above report was generated using voice recognition software. It may contain grammatical, syntax o r spelling errors. Electronically signed by: Daljit Pineda M.D. 07/20/2020 8:56 AM
--- NOTE | 2020-07-20 09:08 | Surgery Progress Note ---
Date of Service July 20, 2020 Assessment & Plan (1) Abdominal pain: KUB with air fluid levels will check CT with contrast Admission and Anticipated Discharge Date Admission Date: July 19, 2020 Supervising Physician Co-Signing Physician Notes Pnt seen and examined, agree with above. Admitted with possible sbo. Vomited overnight, pain worse. CT with oral and IV contrast shows likely closed loop obstruction tethered in the pelvis. Some ascites. ON exam ttp in LLQ, no guarding. Labs wnl. After discussion patient elects for surgery sbo plan for diagnostic laparoscopy, lysis of adhesions, possible open, possible bowel resection The risks of the procedure were discussed to include but not limited to bleeding, infection, damage to surrounding structures, hernia, abscess, need for future or more extensive surgery, and risks of anesthesia. Subjective a little better but vomited this AM, no flatus or BM Physical Exam Gastrointestinal (Abdomen): Inspection/Auscultation: + abdomen distended (minimal, unchanged) Percussion/Palpation: + abdomen tender (minimal) and abdomen soft Results & Data ([facility]) Vital Signs (Past 12 Hours) Vital Signs Temp Pulse Resp BP Pulse Ox 07/20/20 08:02 36.9 C 62 18 120/70 95 07/19/20 23:34 37.0 C 61 14 125/73 94 PG Care Time/CCT Total # of Minutes Spent Total Time Spent with Patient: Total time spent is greater than 50% in coordination of care (as documented) at patient's floor/unit and/or counseling patient: Coding Level of Care Code 29056 Subseq Hosp Care Lvl 1 Diagnoses Abdominal pain R10.9
[2020-07-20] MEDS ORDERED: chlorproMAZINE HCL 25 MG/ML AMP IM PRN (10:29)
[2020-07-20] MEDS ORDERED: IOVERSOL 100ml IV ONE (13:25)
--- NOTE | 2020-07-20 14:12 | CT Scan Report ---
CT SCAN OF THE ABDOMEN AND PELVIS WITH IV CONTRAST CLINICAL HISTORY: Vomiting. Small bowel obstruction. COMPARISON STUDY: Abdominal CT dated 07/19/2020. TECHNIQUE: Following the IV administration of 94 cc of Optiray 320, CT scan of the abdomen and pelvi s is performed from the lung bases to the proximal femora. Images are reviewed in the axial, sagittal , and coronal planes. IV contrast was administered without complication. Oral contrast was utilized. A dose lowering technique was utilized adhering to the principles of ALARA. CT DOSE: 490.03 mGy.cm FINDINGS: Lung bases: The heart is normal in size and without pericardial effusion. The lung bases are clear no ting bibasilar atelectasis. Liver: The contrast-enhanced liver is normal in size, contour, and attenuation. There is no intrahepa tic biliary ductal dilatation. The hepatic veins and portal veins are patent. Gallbladder: Unremarkable. Spleen: Normal in size and attenuation. Pancreas: Unremarkable. Adrenal glands: Unremarkable. Kidneys: The contrast enhanced kidneys are normal in size and without hydronephrosis. The kidneys enh ance symmetrically. Numerous peripelvic cysts are seen bilaterally. Abdominal vasculature: The abdominal aorta is normal in course and caliber noting mild atheroscleroti c calcification. Bowel: There are distended loops of fluid-filled small bowel in midabdomen. These measure up to 3.2 c m in diameter. There is a complex transition point in the central pelvis well several loops of small bowel appear to be tethered image #313. The appearance is consistent with a small bowel obstruction. Enteric contrast does not reach these loops. The distal small bowel and colon are decompressed. No fo ashly thick walled bowel loops are identified. There is no pneumatosis intestinalis or portal venous gas. Interloop fluid is new from yesterday. There is mild colonic diverticulosis without CT evidence of acute diverticulitis. The appendix is well-visualized and normal. Peritoneum: A small volume of abdominal ascites is new from previous. No intraperitoneal free air is seen. Lymphadenopathy: None. Pelvic viscera: The bladder, prostate, and seminal vesicles are normal as imaged. Skeletal structures: No lytic or blastic lesions are seen. There are bilateral pars defects at L5. IMPRESSION: 1. Findings remain consistent with a high-grade small bowel obstruction. 2. There is a complex transition point in the central pelvis where several bowel loops appear to be t ethered. Findings are highly concerning for a closed loop type obstruction. Surgical consultation is advised. 3. There is increasing interloop fluid. A small volume of abdominopelvic ascites is new from yesterda y. 4. No intraperitoneal free air is identified. There is no pneumatosis intestinalis, portal venous gas , or focally thick walled bowel loops. 5. Additional findings as above. ACT 112: Negative or not required by law. Electronically signed by: Jay Bain M.D. 07/20/2020 2:10 PM
[2020-07-20] MEDS ORDERED: LIDOCAINE HCL 2% 2 ML VIAL/AMP(20MG/ML) INFIL ONE (15:17)
[2020-07-20] MEDS ORDERED: PROPOFOL IV EMULSION 10 MG/ML 20 ML VIAL IV ONE (15:17)
[2020-07-20] MEDS ORDERED: ROCURONIUM BROMIDE 10 MG/ML 5 ML VIAL IV ONE (15:17)
[2020-07-20] MEDS ORDERED: MIDAZOLAM HCL 1 MG/ML 2ML VIAL ONE (15:18)
[2020-07-20] MEDS ORDERED: fentaNYL citrate 100 MCG/2 ML VIAL ONE (15:18)
[2020-07-20] MEDS ORDERED: BUPIVACAINE 0.5 % 5 MG/1 ML MPF 30ML VIAL ONE (16:03)
--- NOTE | 2020-07-20 16:06 | Anesthesiology Consultation ---
Date of Service July 20, 2020 Assessment & Plan Chart Review Chart Review: Acceptable Risk for Surgery Consults Requested none History Surgery Operation Date: 07/20/20 18:05 Proposed Procedures p Diagnostic Laparoscopy Possible Laparotomy for Small Bowel Obstruction - Jan Brady DO, FACS Height/Weight Height: 5 ft 9 in Weight: 86.4 kg Allergies Allergy/AdvReac Type Severity Reaction Status Date / Time No Known Allergies Allergy Verified 07/19/20 17:26 Medications Home Medications Medication Instructions Recorded Confirmed Last Taken atorvastatin 10 mg PO QPM 07/19/20 07/19/20 07/18/20 Active Medications Generic Name Dose Route Start Last Admin Trade Name Freq PRN Reason Stop Dose Admin Atorvastatin Calcium 10 mg 07/20/20 09:00 07/20/20 08:57 Atorvastatin 10 Mg Tab PO 08/19/20 08:59 10 mg DAILY SADIE Administration Chlorpromazine HCl 25 mg 07/20/20 10:29 07/20/20 13:03 Chlorpromazine Hcl Inj 25 Mg/Ml 2 Ml Amp IM 08/19/20 10:29 25 mg Q8H PRN Administration hiccups Diclofenac Sodium 2 gm 07/19/20 21:00 07/20/20 11:49 Diclofenac Sod 1% Gel 100 Gm Tube EXT 08/18/20 20:59 Not Given QID SADIE Hydromorphone HCl 0.5 mg 07/19/20 18:41 07/20/20 07:30 Hydromorphone Inj 0.5 Mg/0.5 Ml Syr IV 08/02/20 18:40 0.5 mg Q4H PRN Administration Pain Potassium Chloride/Dextrose/Sod Cl 20 meq in 1,000 mls @ 125 mls/hr 07/19/20 19:00 07/20/20 15:49 D5w And 1/2nss + 20meq Kcl IV 08/18/20 18:59 0 mls/hr .Q8H SADIE Infusion Famotidine 20 mg/ Syringe 5 mls @ 2.5 mls/min 07/19/20 21:00 07/20/20 08:57 IV 08/18/20 20:59 2.5 mls/min BID SADIE Administration Ondansetron HCl 4 mg 07/19/20 18:41 07/20/20 07:29 Ondansetron Inj 2 Mg/Ml 2 Ml Vial IV 08/18/20 18:40 4 mg Q6H PRN Administration Nausea Past Medical History Medical History Esophageal reflux Hyperlipidemia Past Family History Family History Grandmother Diabetes Grandfather Myocardial infarction Grandfather Esophageal cancer Uncle Prostate cancer Mother Hypertension Father Hypertension Brother Crohn's disease Sister Stroke, Onset Age: 50 TIA Sister No problems noted. Son No problems noted. Daughter No problems noted. Daughter No problems noted. Denies family history of Ovarian cancer Breast cancer Colorectal cancer Past Surgical History Surgical History H/O wisdom tooth extraction History of ankle surgery left Social History Smoking Status: Former smoker tobacco type: cigarettes Do You Dip or Chew Tobacco: Yes (half a can a day) Hx Alcohol Use: No Alcohol type: beer Hx Substance Use: No Physical Exam Vital Signs Last Vital Signs Temp 37.3 C 07/20/20 16:03 Pulse 83 07/20/20 16:03 Resp 18 07/20/20 16:03 BP 141/76 H 07/20/20 16:03 Pulse Ox 94 07/20/20 16:03 Testing Laboratory Results 07/19/20 14:42 07/20/20 05:49 PT 11.0 Seconds (9.0-12.0) 07/19/20 14:42 INR 1.0 (0.9-1.1) 07/19/20 14:42 APTT 27.2 Seconds (21.0-31.0) 07/19/20 14:42 Urine Color Yellow 07/19/20 15:13 Urine Appearance Clear (Clear) 07/19/20 15:13 Urine pH 7.0 (4.5-7.5) 07/19/20 15:13 Ur Specific [place] 1.022 (1.000-1.030) 07/19/20 15:13 Urine Protein Negative (Negative) 07/19/20 15:13 Urine Glucose (UA) Negative (Negative) 07/19/20 15:13 Urine Ketones Negative (Negative) 07/19/20 15:13 Urine Nitrite Negative (Negative) 07/19/20 15:13 Ur Leukocyte Esterase Negative (Negative) 07/19/20 15:13
[2020-07-20] MEDS ORDERED: cefOXitin 2,000 MG in DEXTROSE 5% 50 ML IV STA (16:09)
[2020-07-20] MEDS ORDERED: ATROPINE SULFATE 0.1 MG/ML 10ML SYR IV PRN (16:13)
[2020-07-20] MEDS ORDERED: ePHEDrine sulfate 50 MG/ML AMP IV PRN (16:13)
[2020-07-20] MEDS ORDERED: HYDROmorphone INJ 2 MG/ML SYR/VIAL IV PRN (16:13)
[2020-07-20] MEDS ORDERED: fentaNYL citrate 100 MCG/2 ML VIAL IV PRN (16:13)
[2020-07-20] MEDS ORDERED: METOCLOPRAMIDE HCL INJ 5 MG/ML 2 ML VIAL IV PRN (16:13)
[2020-07-20] MEDS ORDERED: ONDANSETRON INJ 2 MG/ML 2 ML VIAL IV PRN (16:13)
[2020-07-20] MEDS ORDERED: PROMETHAZINE HCL 12.5 MG in SODIUM CHLORIDE 0.9% 50 ML IV PRN (16:13)
[2020-07-20] MEDS ORDERED: SUCCINYLCHOLINE CHLORIDE 20 MG/ML 10 ML VIAL IV ONE (17:09)
[2020-07-20] MEDS ORDERED: ONDANSETRON INJ 2 MG/ML 2 ML VIAL ONE (17:09)
[2020-07-20] MEDS ORDERED: DEXAMETHASONE SOD INJ 4 MG/ML VIAL ONE (17:09)
[2020-07-20] MEDS ORDERED: SUGAMMADEX SODIUM 200 MG/2 ML VIAL IV ONE (17:11)
[2020-07-20] MEDS ORDERED: NEOSTIGMINE METHYLSULFATE 5 MG/5 ML SYR ONE (17:34)
[2020-07-20] MEDS ORDERED: GLYCOPYRROLATE 0.2 MG/ML VIAL ONE (17:34)
--- NOTE | 2020-07-20 17:46 | Operative Report ---
PG Post Operative Report Pre & Post Diagnosis Operation Date: 07/20/20 18:05 Pre-Op Diagnosis: Small bowel obstruction Post-Op Diagnosis: Abdominal adhesions I identified the patient and participated in the time-out.: Yes Procedure Operation Date: 07/20/20 18:05 Actual Procedures p Diagnostic Laparoscopy, Laparoscopic Appendectomy, Lysis of Adhesion(Not Applicable) - Jan Brady DO, FACS Surgeon Jan Brady DO, TOD Gluing Machine Offbearer Ramos Levi Estimated Blood Loss 5 Findings Consistent with Post-Op Diagnosis Dilated erythematous small bowel tethered in the right lower quadrant. Some mild reactive ascites. There was a single adhesion that consisted of a epiploica from the sigmoid colon with some inflammation that may be consistent with a recent epiploic appendagitis. This created an adhesion and allowed for the closed-loop partial obstruction. This was bluntly lysed. There is a second area where an epiploica had a firm nodule that could have been scarring versus less likely a neoplasm that created a tethering band. This was excised and passed off the table as specimen. The small bowel was run from the terminal ileum proximally to the ligament of Treitz. There was no other abnormalities noted. The appendix was mildly injected at the tip and we elected to perform an incidental appendectomy as the tethering point was very close to the appendix. The small bowel was reassessed and was already peristalsing and appeared healthy. Specimens Epiploic mass Appendix Anesthesia Type General Complications none Disposition Accompanied Patient To Recovery: No Disposition: Recovery Room Indications 50-year-old male admitted overnight with concern for possible partial small bowel obstruction. The initial CT scan was concerning for possible closed-loop obstruction but was limited due to lack of oral and IV contrast. The CT scan was repeated this afternoon and confirmed the presence of a partial small bowel obstruction concerning for possible developing closed-loop obstruction. After discussion with the patient we elected for surgery. Plan for diagnostic laparoscopy, lysis of adhesions, possible bowel resection, possible open. The risks of the procedure were discussed, all questions were answered, and the patient agreed to proceed with surgery as planned. Description of Procedure The patient was properly identified, consented, and taken to the operating room where he was placed in the supine position. General endotracheal anesthesia was induced. SCDs and a safety belt were placed. Preoperative antibiotics were administered. A Ojeda catheter and an NG tube was placed. The patient's abdomen was prepped and draped in the standard sterile fashion. Surgical timeout was performed and all parties were in agreement that this was the correct patient and procedure to be performed and we continued as planned. An incision was made in the left upper quadrant and the Veress needle was inserted. Saline drop test confirmed entry into the peritoneum. The abdomen was insufflated with carbon dioxide which the patient tolerated without incident. The abdomen was then entered using the Optiview technique and a 5 mm trocar. The laparoscope was inserted and no damage from initial trocar or Veress needle placement was noted, no gross abnormalities were noted within the 4 quadrants of the abdomen. 5 mm ports were then placed in the left lower quadrant and in the right upper quadrant. The patient was placed in Trendelenburg position and rotated towards the left. There was obvious erythematous and dilated small bowel as well as decompressed distal bowel. This appeared to be originating from the right lower quadrant/pelvis as was demonstrated in the CT scan. We began to explore this area and noted that there was a tight adhesive band emanating from an epiploica from the sigmoid colon. This was bluntly lysed. Immediately the bowel was released. We then continued to explore the area and found another developing band from an sigmoid colon epiploica to what appeared to be another epiploica. In the middle of this there was a firm nodular mass that may be consistent with history of epiploic appendagitis versus neoplasm. This was excised using the harmonic scalpel and passed off the table as specimen. The reactive ascites was suctioned out of the pelvis and right lower quadrant. We then ran the bowel from terminal ileum proximally to the ligament of Treitz. There were no other abnormalities present. The appendix appeared to be mildly injected, and as these tethering adhesions were around the location of the appendix but not to the appendix, I decided to perform an appendectomy. The 5 mm port in the left upper quadrant was replaced with a 12 mm port. The small bowel was swept away from the right lower quadrant. The cecum was grasped with an atraumatic grasper exposing the appendix. A window was created between the base of the appendix and the mesoappendix. A nunez loaded endoscopic stapler was then used to divide the appendix at its base. The harmonic scalpel was then used to divide the mesoappendix. Hemostasis was good. The appendix was placed in an Endo Catch bag and removed through the left upper quadrant port site. The right lower quadrant and pelvis was irrigated and hemostasis was found to be good. The fascia of the left upper quadrant 12 mm port site was closed using an 0 Vicryl suture and the Artie-Maureen closure device. The wound was irrigated, and the skin of all ports was closed with 4-0 Monocryl subcuticular sutures. Dermabond was placed over the wounds. The Ojeda catheter was removed, but the NG tube was left in place. The patient was extubated in the operating room and taken to the PACU where he recovered without apparent incident. All sponge, instrument and needle counts were correct at the conclusion of the procedure. The patient tolerated the procedure well. The physician's public relations assistant was present and scrubbed for the entire the case. He was critical in positioning the patient, prepping and draping, retraction and exposure, driving the laparoscope, closure the incisions, and placement of the dressings. I attest to the content of the Intraoperative Record and any orders documented therein. Any exceptions are noted below.
--- NOTE | 2020-07-20 18:03 | Electrocardiogram Report ---
Test Reason : Blood Pressure : / mmHG Vent. Rate : 083 BPM Atrial Rate : 083 BPM P-R Int : 158 ms QRS Dur : 086 ms QT Int : 356 ms P-R-T Axes : 056 043 062 degrees QTc Int : 418 ms Normal sinus rhythm Confirmed by Isreal Miranda ([id number]) on 07/20/2020 6:03:06 PM Referred By: REFERRED SELF Confirmed By:Zechariah Miranda
--- NOTE | 2020-07-20 19:18 | Anesthesiology Progress Note ---
Date of Service July 20, 2020 Anesthesia Post Procedure Vital Signs Vital Signs: Temp Pulse Pulse Resp BP BP Pulse Ox 07/20/20 19:05 68 15 140/84 96 07/20/20 18:55 75 16 149/91 H 95 07/20/20 18:45 73 16 141/82 H 94 07/20/20 18:35 63 15 144/78 H 95 07/20/20 18:25 37.1 C 80 16 147/88 H 94 07/20/20 18:15 70 15 153/85 H 94 07/20/20 18:05 86 16 155/89 H 95 07/20/20 17:56 36.4 C L 96 H 18 179/93 H 98 07/20/20 16:03 37.3 C 83 18 141/76 H 94 07/20/20 14:52 37.2 C 63 16 136/79 93 07/20/20 08:02 36.9 C 62 18 120/70 95 07/19/20 23:34 37.0 C 61 14 125/73 94 Pain Intensity Abdomen: Pain Intensity: 3 Transfer of Care Handoff Completed per policy Notes Mental Status: alert / awake / arousable and participated in evaluation Patient Amnestic to Procedure: Yes Nausea / Vomiting: adequately controlled Pain: adequately controlled Airway Patency, RR, SpO2: stable & adequate BP & HR: stable & adequate Hydration State: stable & adequate Anesthetic Complications: no major complications apparent
[2020-07-20] MEDS ORDERED: HYDROmorphone INJ 1 MG/ML SYRINGE IV PRN (19:26)
[2020-07-20] MEDS ORDERED: ACETAMINOPHEN 1,000 MG/100 ML VIAL IV PRN (19:26)
[2020-07-21] MEDS: D5W AND 1/2NSS + 20MEQ KCL 20 MEQ/1,000 ML BAG IV SCH (04:59)
--- NOTE | 2020-07-21 08:19 | Surgery Progress Note ---
Date of Service July 21, 2020 Assessment & Plan (1) SBO (small bowel obstruction): POD 1 laparoscopic PHILIP/incidental appy start clear liquids, maybe full liquids later probably wait until tomorrow for solid food Admission and Anticipated Discharge Date Admission Date: July 19, 2020 Supervising Physician Co-Signing Physician Notes Patient seen and examined, agree with above. POD #1 diagnostic laparoscopy with lysis of adhesions to relieve small bowel obstruction and incidental appendectomy. Overall he is feeling much better, a little soreness in his left upper quadrant at the larger incision site. He has passed gas multiple times and tolerated liquids. On exam he is afebrile with stable vitals. Abdomen is soft, less distended, and appropriately tender to palpation in incision sites. Incision sites clean dry and intact. Plan to advance diet, transition to oral pain medications. Likely discharge tonight or tomorrow if tolerating regular diet. Activity restrictions and wound care instructions reviewed. Follow-up in general surgery clinic in 2 weeks. [facility] surgery covering over the weekend. Subjective feels much better, had Ofirmev for pain, no nausea Physical Exam Gastrointestinal (Abdomen): Inspection/Auscultation: + abdominal surgical incision (clean, dry); abdomen not distended Percussion/Palpation: abdomen soft Results & Data ([facility]) Vital Signs (Past 12 Hours) Vital Signs Temp Pulse Pulse Resp BP BP Pulse Ox 07/21/20 07:56 36.7 C 61 16 126/74 93 07/21/20 03:53 37.0 C 76 16 125/75 91 07/20/20 23:40 37.0 C 99 H 16 117/74 91 07/20/20 22:16 36.9 C 85 16 135/84 91 07/20/20 21:06 36.9 C 67 16 152/81 H 90 07/20/20 20:27 36.8 C 75 16 136/80 94 PG Care Time/CCT Total # of Minutes Spent Total Time Spent with Patient: Total time spent is greater than 50% in coordination of care (as documented) at patient's floor/unit and/or counseling patient: Coding Level of Care Code None Diagnoses SBO (small bowel obstruction) K56.609
[2020-07-21] MEDS: FAMOTIDINE 20 MG in SYRINGE 3 ML IV SCH ×2 (08:38→20:28)
[2020-07-21] MEDS: DICLOFENAC SOD 1% GEL 100 GM TUBE EXT SCH ×4 (08:39→20:28)
[2020-07-21] MEDS: ATORVASTATIN 10 MG TAB PO SCH (08:39)
[2020-07-21] MEDS ORDERED: oxyCODONE/ACETAMINOPHEN 5mg/325mg TAB PO PRN ×2 (13:15→13:26)
[2020-07-21] MEDS ORDERED: oxyCODONE HCL IR 5 MG TAB (IMMEDIATE RELEASE) PO PRN (14:31)
[2020-07-21] MEDS: oxyCODONE/ACETAMINOPHEN 5mg/325mg TAB PO PRN (17:19)
--- NOTE | 2020-07-21 19:37 | Hospitalist Progress Note ---
Date of Service July 21, 2020 Assessment & Plan (1) SBO (small bowel obstruction): CT abd/pelvis suggests SBO -patient on previous abdominal surgery or trauma Appreciate gen surg consultation. Pt did have lysis of adhesions and appendectomy 07/20 feeling much better, did have flatus is on diet with surgical oversight (2) Abdominal pain: improving after surgery (3) Esophageal reflux: pepcid, will d/c on ppi Patient states many many years ago approximately 20 patient had a similar episode which she had some testing including an EGD and x-rays which was done to be reflux disease and treated with acid suppressing medications with success however was never told about obstruction at that time (4) Hyperlipidemia: lipitor daily (5) DVT prophylaxis: low risk ambulate Admission and Anticipated Discharge Date Admission Date: July 19, 2020 Subjective pt feels better post op did have flatus some muscle pain to movement Review of Systems Review of Systems: Mild distress and fatigue no headache, blurry or double vision no speech or swallowing issues no chest pain, pressure or palpitations no shortness of breath, cough or wheezes Persistent epigastric upper quadrant abdominal pain nausea with vomiting no bowel movements present no dysuria, hematuria or frequency no focal joint pain or swelling no back pain, CVA tenderness or radicular pain no bruising, bleeding or rashes no focal signs of weakness or numbness or altered sensation no complaints of anxiety or depression. Ear, Nose, Mouth, Throat: no loss of taste or smell Gastrointestinal: + abdominal pain; no nausea, no vomiting and no diarrhea/loose stools Endocrine: denies diabetes Physical Exam Physical Exam: The patient appeared well nourished and normally developed. Vital signs as documented. Head exam is normocephalic atraumatic no scleral icterus Neck is without JVD, thyromegaly, or carotid bruits. Lungs are clear to auscultation, no focal loss of breath sounds Cardiac exam, Rhythm is regular.. No murmurs, rubs or gallops. Abdominal exam reveals only minor pain, wounds are clean and dry Extremities are nonedematous and both pedal pulses are present Neurologic exam is alert and oriented, no focal loss of strength or sensation Skin is without bruises or rashes Psychologically is without concerns for anxiety or depression. Results & Data Results & Data ([facility]) Vital Signs (Past 12 Hours) Vital Signs Temp Pulse Pulse Resp BP Pulse Ox 07/21/20 15:24 97.9 F 58 L 16 147/73 H 97 07/21/20 07:56 98.1 F 61 16 126/74 93 PG Care Time/CCT Total # of Minutes Spent Total Time Spent with Patient: Total time spent is greater than 50% in coordination of care (as documented) at patient's floor/unit and/or counseling patient: Coding Level of Care Code 39876 Subseq Hosp Care Lvl 2 Diagnoses SBO (small bowel obstruction) K56.609 Abdominal pain R10.13 Abdominal location: epigastric Esophageal reflux K21.9 Hyperlipidemia E78.5 DVT prophylaxis Z29.9 (1) Abdominal pain Abdominal location: epigastric Qualified Code(s): R10.13 - Epigastric pain
[2020-07-22] MEDS: DICLOFENAC SOD 1% GEL 100 GM TUBE EXT SCH ×2 (08:45→13:31)
[2020-07-22] MEDS: ATORVASTATIN 10 MG TAB PO SCH (08:45)
[2020-07-22] MEDS: FAMOTIDINE 20 MG in SYRINGE 3 ML IV SCH (08:45)
[2020-07-22] MEDS: oxyCODONE/ACETAMINOPHEN 5mg/325mg TAB PO PRN ×2 (08:52→13:34)
--- NOTE | 2020-07-22 11:44 | Surgery Progress Note ---
Date of Service July 22, 2020 Assessment & Plan (1) SBO (small bowel obstruction): Postoperative day #2 status post laparoscopic lysis of adhesions with release of small bowel obstruction Patient is feeling well Bowel function is returned Plan for advance diet today with discharge this afternoon I agree with that Discussed postoperative activity restrictions To call Dr. Brady office on Friday for a follow-up visit. Admission and Anticipated Discharge Date Admission Date: July 19, 2020 Subjective Postoperative day #2 status post laparoscopic lysis of adhesions with release of small bowel obstruction Feeling well today Only incisional discomfort Passing flatus but has not had bowel movement Denies nausea and vomiting and tolerating diet Physical Exam Gastrointestinal (Abdomen): Inspection/Auscultation: + abdominal surgical incision (All are clean, dry and intact); abdomen not distended Percussion/Palpation: + abdomen tender (Mild incisional only) and abdomen soft Results & Data ([facility]) Vital Signs (Past 12 Hours) Vital Signs Temp Pulse Resp BP Pulse Ox 07/22/20 07:42 36.7 C 58 L 16 130/78 96
--- NOTE | 2020-07-22 17:10 | Discharge Summary ---
Date of Service July 22, 2020 Admission HPI Per Admitting Provider 50yo male with h/o hyperlipidemia presents with acute onset of upper abdominal pain and bloating beginning about 1115 this am after eating at a local deli. Pain started about 5-10 minutes after he finished eating his meal. No nausea or vomiting. Pain radiated to the back. No diarrhea. Has not passed flatus since coming to the ER. No fevers but did have mild chills about 1-2 hours into the pain episode. Pain is described as sharp and continuous. [place] fine this am upon awakening with no recent illnesses. In the ER a CT of the abd/pelvis appeared to show an SBO. General surgery was contacted for consultation and we were consulted for admission. Principal Diagnosis Small bowel obstruction status post surgical correction Incidental appendectomy Discharge Exam The patient appeared well Vital signs as documented. Lungs are clear to auscultation and appear unlabored Cardiac exam, Rhythm is regular.. No murmurs, rubs or gallops. Abdominal exam reveals normal bowel sounds, soft no tenderness but normal looking laparoscopic access ports Extremities are nonedematous and both pedal pulses are normal. Neurologic exam is alert and oriented, no focal loss of strength or sensation Skin is without bruises or rashes Psychologically is without concerns for anxiety or depression. Discharge Data Allergies Allergy/AdvReac Type Severity Reaction Status Date / Time No Known Allergies Allergy Verified 07/19/20 17:26 Consultations 07/19/20 16:06 Consult General Surgery Stat ED Decision to Admit Stat Procedures Performed Operation Date: 07/20/20 18:05 Actual Procedures p Laparoscopic Appendectomy(Not Applicable) - Jan Brady DO, FACS s Diagnostic Laparoscopy, Lysis of Adhesion(Not Applicable) - Jan Brady DO, FACS Ordered Studies 07/19/20 14:23 CT abd pelvis wo con Stat 07/20/20 09:05 CT abd pelvis oral and IV con Urgent Hospital Course (1) SBO (small bowel obstruction): CT abd/pelvis suggests SBO -patient on previous abdominal surgery or trauma Appreciate gen surg consultation. Pt did have lysis of adhesions and appendectomy 07/20 feeling much better, did have flatus tolerated diet patient be discharged home To follow-up as an outpatient with surgery (2) Abdominal pain: improving after surgery (3) Esophageal reflux: Discharged home on Protonix (4) Hyperlipidemia: lipitor daily Total Time Total Time Spent Total Time Spent (In Minutes): It required greater than 30 minutes to prepare this patient for discharge Discharge Plan Discharge Items Patient Disposition: Home - Self-Care Reason For Visit: SBO Discharge Diagnosis: small bowel obstruction s/p lysis of adhesion appendectomy Activity: Per Instructions section Lifting: No more than 10 pounds Bathing: No limitations Driving/Machine Use: Resume 3 days after discharge Non-emergency contact: Surgeon Call non-emergency contact if: you have any medication questions, your pain is not controlled, you have a fever and your wound has increased redness Follow-up/Referrals: Megan Cox MD [Primary Care Provider] - Jan Brady, TOD RANDOLPH [Physician] - (Call the office to make an appt in 10-14 days) Diet: Low Fiber Addtl Attending Provider Instructions: please follow up with surgeon in 1-2 weeks Pending Studies at Discharge: No Stand-Alone Forms: My NumberPicture, Opioid Pain Management, Smoking Cessation Medications and DC Order Prescriptions: New oxycodone-acetaminophen [Percocet] 5-325 mg tablet 1 - 2 tab PO Q4H PRN (Reason: pain, initial therapy, max 6 daily) Qty: 15 RF: 0 oxycodone-acetaminophen [Percocet] 5-325 mg Tablet 1 tab PO Q4H PRN (Reason: pain) Qty: 20 RF: 0 pantoprazole [Protonix] 40 mg tablet,delayed release (DR/EC) 40 mg PO DAILY 28 Days Qty: 30 RF: 4 Continued atorvastatin 10 mg tablet 10 mg PO QPM RF: 0 Discharge Orders: Discharge Order (Routine); Ordered 07/22/20 Ordered By: Dejuan Rayo/Other Patient Handouts: Small Bowel Obstruction, Appendectomy Laparoscopic Dc, Understanding Lysis of Adhesions Admission Data Admit Date/Time: 07/19/20 17:20 Attending Provider: Dejuan Rivera Admit Provider: Beto Gamboa Primary Care Provider: Megan Cox Other Providers: Jan Brady ; Beto Gamboa Other Interventions: Discharge Summary Assessment (RN) Last Done: 07/22/20 11:54 Coding Level of Care Code D/C Day Management >30 mins Diagnoses SBO (small bowel obstruction) K56.609 Abdominal pain R10.13 Abdominal location: epigastric Esophageal reflux K21.9 Hyperlipidemia E78.5
== END 2020-07-22 14:12 | disposition home or self-care (01) | DRG 337 ==
LOC: ED 14:06 → 3E 17:20 → SUATTDRO 17:20 → 3E 18:27